=== PATIENT | male | born 1970 | race African-American/Black ===

== ENCOUNTER 2017-11-21 18:29 | Observation (INO) ==
[2017-11-21] MEDS ORDERED: hydrALAZINE 20 MG/1 ML VIAL IV STA ×2 (18:59→20:10)
[2017-11-21] MEDS ORDERED: LABETALOL 20 MG/4 ML SYRINGE IV STA ×2 (18:59→20:10)
[2017-11-21] MEDS ORDERED: hydrALAZINE 20 MG/1 ML VIAL ONE ×2 (19:47→20:27)
[2017-11-21] MEDS ORDERED: LABETALOL 20 MG/4 ML SYRINGE IV ONE ×2 (19:47→20:27)
[2017-11-21 19:54] LABS: Basophils # 0.1 10*3/uL (0.0-0.2); Basophils % 0.5 % (0.0-0.8); Eosinophils # 0.3 10*3/uL (0.0-0.87); Eosinophils % 2.3 % (0.00-10.9); Hematocrit 44.3 VOL% (42.0-52.0); Hemoglobin 15.2 GM/DL (14.0-18.0); Immature Granulocytes % 0.6 %; Immature Granulocytes Absolute 0.08 #; Lymphocytes # 2.5 10*3/uL (1.4-4.0); Mean Corpuscular HGB Conc 34.3 GM/DL (32-36); Mean Corpuscular Hemoglobin 28 PG (27-34); Mean Corpuscular Volume 81.7 FL (87-102); Mean Platelet Volume 9.5 FL (9.6-12.0); Monocytes # 0.9 10*3/uL (0.11-0.8); Monocytes % 6.3 % (1.7-12.7); Neutrophils % 72.3 % (38.7-73.9); Platelet Count 187 T/CUMM (130-400); Red Blood Count 5.42 MC/CUMM (3.8-5.5); White Blood Count 13.8 T/CUMM (4-12)
[2017-11-21 20:23] LABS: Bilirubin,Total 0.5 MG/DL (0.2-1.0); Calcium 8.3 MG/DL (8.5-10.1); Osmolality,Calculated 275.7 MOS/KG (273-304); Potassium 3.6 MMOL/L (3.5-5.1); Total Protein 6.9 G/DL (6.4-8.3)
[2017-11-21 20:24] LABS: Troponin I Only 0.059 NG/ML (0.00-0.045)
[2017-11-21] MEDS ORDERED: NITROGLYCERIN SL 0.4 MG TABLET SL PRN (23:19)
[2017-11-21] MEDS ORDERED: MORPHINE 2 MG/1 ML SYRINGE IV PRN (23:24)
[2017-11-21] MEDS ORDERED: ONDANSETRON 4 MG/2 ML VIAL IV PRN (23:24)
[2017-11-21] MEDS ORDERED: ACETAMINOPHEN 325 MG TABLET PO PRN (23:24)
[2017-11-21] MEDS ORDERED: amLODIPine 5 MG TABLET ONE (23:54)
[2017-11-21] MEDS ORDERED: ZALEPLON 5 MG CAPSULE ONE (23:57)
[2017-11-22] MEDS: ALBUTEROL/IPRATROPIUM 3 ML NEB RESP TX SCH ×4 (01:48→20:30)
[2017-11-22 03:55] LABS: Apearance,Urine CLEAR (Clear); Bacteria,Urine Occasional /HPF (Few); Bilirubin,Urine Negative (Negative); Blood, Urine Negative (Negative); Glucose,Urine (UA) Negative (Negative); Hyaline Casts,Urine 10 /LPF (0-3); Ketones,Urine Negative (Negative); Mucus,Urine Occasional /LPF (Occasional); Nitrite,Urine Negative (Negative); Protein,Urine >=500 MG/DL; RBC,Urine 3 /HPF (0-4); Squamous Epithelial Cell,Urine Occasional /HPF (0-10); Urine Color Yellow (Yellow); Urine Specific Gravity 1.009 (1.001-1.035); WBC,Urine 3 /HPF (0-6)
[2017-11-22 04:06] LABS: Barbiturates Screen,Urine Negative (Negative); Benzodiazepines Screen,Urine Negative (Negative); Cannabinoid Screen,Urine Negative (Negative); Opiate Screen,Urine Negative (Negative); Phencyclidine Screen,Urine Negative (Negative)
[2017-11-22 05:53] LABS: Hematocrit 44.1 VOL% (42.0-52.0); Hemoglobin 14.9 GM/DL (14.0-18.0); Mean Corpuscular Hemoglobin 28 PG (27-34); Mean Corpuscular Volume 84.2 FL (87-102); Red Blood Count 5.24 MC/CUMM (3.8-5.5); White Blood Count 13.8 T/CUMM (4-12)
[2017-11-22 05:54] LABS: Basophils # 0.1 10*3/uL (0.0-0.2); Basophils % 0.5 % (0.0-0.8); Eosinophils # 0.2 10*3/uL (0.0-0.87); Eosinophils % 1.2 % (0.00-10.9); Immature Granulocytes % 0.4 %; Immature Granulocytes Absolute 0.05 #; Lymphocytes # 2.3 10*3/uL (1.4-4.0); Lymphocytes % 16.5 % (21.2-54.2); Mean Corpuscular HGB Conc 33.8 GM/DL (32-36); Mean Platelet Volume 11.5 FL (9.6-12.0); Monocytes # 1.1 10*3/uL (0.11-0.8); Monocytes % 8.1 % (1.7-12.7); Neutrophils # 10.1 10*3/uL (1.4-7.4); Neutrophils % 73.3 % (38.7-73.9); Platelet Count 214 T/CUMM (130-400); Red Cell Distribution Width 15.9 % (9.3-17.3)
[2017-11-22 06:42] LABS: Calcium 8.5 MG/DL (8.5-10.1); Osmolality,Calculated 278.7 MOS/KG (273-304); Potassium 3.6 MMOL/L (3.5-5.1); Risk Ratio 3.33; Thyroid Stimulating Hormone 0.977 uIU/ml (0.358-3.74); VLDL CHOLESTEROL 27.6 MG/DL
[2017-11-22] MEDS ORDERED: ENOXAPARIN 40 MG/0.4 ML SYRINGE ONE (08:48)
[2017-11-22] MEDS ORDERED: FUROSEMIDE 20 MG/2 ML VIAL ONE (08:48)
[2017-11-22] MEDS ORDERED: PANTOPRAZOLE 40 MG TABLET PO ONE (08:48)
[2017-11-22] MEDS ORDERED: ASPIRIN CHEW 81 MG TABLET PO ONE (08:48)
[2017-11-22] MEDS ORDERED: amLODIPine 5 MG TABLET ONE (08:49)
[2017-11-22] MEDS: PANTOPRAZOLE 40 MG TABLET PO SCH (08:52)
[2017-11-22] MEDS: ENOXAPARIN 40 MG/0.4 ML SYRINGE SUBCUT SCH (08:53)
[2017-11-22] MEDS: FUROSEMIDE 20 MG/2 ML VIAL IV SCH ×2 (08:53→16:16)
[2017-11-22] MEDS: amLODIPine 10 MG TABLET PO SCH ×2 (10:02)
[2017-11-22] MEDS: ASPIRIN EC 81 MG TABLET PO SCH (10:03)
[2017-11-22] MEDS ORDERED: NIFEdipine 10 MG CAPSULE PO PRN (12:08)
[2017-11-22] MEDS ORDERED: METOPROLOL TARTRATE 25 MG TABLET PO SCH (12:30)
[2017-11-22] MEDS ORDERED: METOPROLOL TARTRATE 25 MG TABLET ONE (14:50)
[2017-11-22] MEDS ORDERED: PNEUMOCOCCAL VACCINE (23 VALENT) 0.5 ML VIAL IM ONE (16:00)
[2017-11-22] MEDS: hydrALAZINE 20 MG/1 ML VIAL IV PRN ×2 (16:14→20:23)
[2017-11-22] MEDS: NICOTINE 14 MG/24 HR PATCH TRANSDERM SCH (17:20)
[2017-11-22] MEDS: CARVEDILOL 12.5 MG TABLET PO SCH (20:22)
[2017-11-22] MEDS: ZALEPLON 5 MG CAPSULE PO SCH ×2 (20:23)
[2017-11-23] MEDS: ALBUTEROL/IPRATROPIUM 3 ML NEB RESP TX SCH ×4 (01:45→21:18)
[2017-11-23 04:58] LABS: Calcium 7.9 MG/DL (8.5-10.1); Magnesium 1.9 MG/DL (1.8-2.4); Osmolality,Calculated 284.4 MOS/KG (273-304); Potassium 3.3 MMOL/L (3.5-5.1)
[2017-11-23 05:01] LABS: Troponin I Only 0.051 NG/ML (0.00-0.045)
[2017-11-23] MEDS: ENOXAPARIN 40 MG/0.4 ML SYRINGE SUBCUT SCH (08:32)
[2017-11-23] MEDS: FUROSEMIDE 20 MG/2 ML VIAL IV SCH (08:32)
[2017-11-23] MEDS: hydrALAZINE 20 MG/1 ML VIAL IV PRN ×3 (08:32→20:04)
[2017-11-23] MEDS: PANTOPRAZOLE 40 MG TABLET PO SCH (08:33)
[2017-11-23] MEDS: CARVEDILOL 12.5 MG TABLET PO SCH (08:33)
[2017-11-23] MEDS: amLODIPine 10 MG TABLET PO SCH (08:33)
[2017-11-23] MEDS: ASPIRIN EC 81 MG TABLET PO SCH (08:33)
[2017-11-23] MEDS: NICOTINE 14 MG/24 HR PATCH TRANSDERM SCH (08:33)
[2017-11-23] MEDS ORDERED: CARVEDILOL 6.25 MG TABLET PO ONE (11:20)
[2017-11-23] MEDS: CIPROFLOXACIN 500 MG TABLET PO SCH ×2 (12:11→20:04)
[2017-11-23] MEDS: hydroCHLOROthiazide 25 MG TABLET PO SCH (12:12)
[2017-11-23] MEDS: CARVEDILOL 25 MG TABLET PO SCH (20:04)
[2017-11-23] MEDS: hydrALAZINE 25 MG TABLET PO SCH (20:04)
[2017-11-23] MEDS: ZALEPLON 5 MG CAPSULE PO SCH (23:24)
[2017-11-23] MEDS ORDERED: LABETALOL 20 MG/4 ML SYRINGE IV ONE (23:30)
[2017-11-24] MEDS: ALBUTEROL/IPRATROPIUM 3 ML NEB RESP TX SCH ×3 (00:31→14:11)
[2017-11-24 05:36] LABS: Calcium 8.2 MG/DL (8.5-10.1); Magnesium 2.1 MG/DL (1.8-2.4); Osmolality,Calculated 279.5 MOS/KG (273-304); Potassium 3.4 MMOL/L (3.5-5.1)
[2017-11-24] MEDS: PANTOPRAZOLE 40 MG TABLET PO SCH (08:56)
[2017-11-24] MEDS: CIPROFLOXACIN 500 MG TABLET PO SCH (08:56)
[2017-11-24] MEDS: hydroCHLOROthiazide 25 MG TABLET PO SCH (08:56)
[2017-11-24] MEDS: CARVEDILOL 25 MG TABLET PO SCH (08:56)
[2017-11-24] MEDS: hydrALAZINE 25 MG TABLET PO SCH ×2 (08:56→14:34)
[2017-11-24] MEDS: NICOTINE 14 MG/24 HR PATCH TRANSDERM SCH (08:56)
[2017-11-24] MEDS: ASPIRIN EC 81 MG TABLET PO SCH (08:57)
[2017-11-24] MEDS: ENOXAPARIN 40 MG/0.4 ML SYRINGE SUBCUT SCH (08:57)
[2017-11-24] MEDS ORDERED: FUROSEMIDE 40 MG TABLET PO SCH (09:00)
[2017-11-24] MEDS: hydrALAZINE 20 MG/1 ML VIAL IV PRN (10:22)
[2017-11-24 12:31] VITALS: BP 138/79
== END 2017-11-24 16:06 | disposition home or self-care (01) ==
LOC: N.ED 18:29 → N.EDINP 18:29 → SUATTDRO 23:24 → N.EDINP 11-22 15:09 → N.4E 11-22 15:36
PROVIDERS: ADMIT Internal Medicine; ATTEND Internal Medicine Nephrology

== ENCOUNTER 2018-10-28 12:10 | Inpatient (IN) ==
[2018-10-28 12:44] LABS: Basophils # 0.1 10*3/uL (0.0-0.2); Basophils % 0.7 % (0.0-0.8); Eosinophils # 0.4 10*3/uL (0.0-0.87); Eosinophils % 3.2 % (0.00-10.9); Hemoglobin 15.7 GM/DL (14.0-18.0); Immature Granulocytes % 0.6 %; Immature Granulocytes Absolute 0.08 #; Lymphocytes # 1.8 10*3/uL (1.4-4.0); Lymphocytes % 14.3 % (21.2-54.2); Mean Corpuscular HGB Conc 33.4 GM/DL (32-36); Mean Corpuscular Hemoglobin 28 PG (27-34); Mean Corpuscular Volume 84.5 FL (87-102); Mean Platelet Volume 9.5 FL (9.6-12.0); Monocytes # 0.9 10*3/uL (0.11-0.8); Monocytes % 6.8 % (1.7-12.7); Neutrophils # 9.3 10*3/uL (1.4-7.4); Neutrophils % 74.4 % (38.7-73.9); Platelet Count 159 T/CUMM (130-400); Red Blood Count 5.56 MC/CUMM (3.8-5.5); Red Cell Distribution Width 13.8 % (9.3-17.3); White Blood Count 12.6 T/CUMM (4-12)
[2018-10-28 12:53] LABS: PT Patient Result 10.7 SECS; Partial Thromboplastin Time 27.8 SECS (0-40)
[2018-10-28 13:09] LABS: Bilirubin,Total 0.6 MG/DL (0.2-1.0); Calcium 8.2 MG/DL (8.5-10.1); Osmolality,Calculated 281.4 MOS/KG (273-304)
[2018-10-28] MEDS ORDERED: ALBUTEROL/IPRATROPIUM 3 ML NEB RESP TX STA (15:18)
[2018-10-28] MEDS ORDERED: hydrALAZINE 20 MG/1 ML VIAL IV STA ×3 (15:18→18:16)
[2018-10-28] MEDS ORDERED: NITROGLYCERIN 2% OINT 1 INCH/GM PACK TOP STA (15:18)
[2018-10-28] MEDS ORDERED: FUROSEMIDE 100 MG/10 ML VIAL IV STA (15:18)
[2018-10-28] MEDS ORDERED: ONDANSETRON 4 MG/2 ML VIAL IV STA (15:18)
[2018-10-28] MEDS ORDERED: MORPHINE 4 MG/1 ML VIAL IV STA (15:18)
[2018-10-28] MEDS ORDERED: FUROSEMIDE 40 MG/4 ML VIAL ONE (15:38)
[2018-10-28] MEDS ORDERED: FUROSEMIDE 20 MG/2 ML VIAL ONE (15:39)
[2018-10-28] MEDS ORDERED: ENOXAPARIN 100 MG/ML SYRINGE SUBCUT STA (15:42)
[2018-10-28] MEDS ORDERED: ENOXAPARIN 120 MG/0.8 ML SYRINGE SUBCUT ONE (16:52)
[2018-10-28] MEDS ORDERED: ONDANSETRON 4 MG/2 ML VIAL IV PRN (18:12)
[2018-10-28] MEDS ORDERED: ZALEPLON 5 MG CAPSULE PO PRN (18:12)
[2018-10-28] MEDS ORDERED: ACETAMINOPHEN 325 MG TABLET PO PRN (18:12)
[2018-10-28] MEDS ORDERED: LORazepam 1 MG TABLET PO PRN (18:16)
[2018-10-28] MEDS ORDERED: POTASSIUM CHLORIDE 20 MEQ TABLET PO PRN (18:26)
[2018-10-28] MEDS ORDERED: niCARdipine 25 MG/10 ML VIAL IV ONE (20:56)
[2018-10-28] MEDS ORDERED: hydrALAZINE 25 MG TABLET PO SCH (21:00)
[2018-10-28] MEDS: niCARdipine INJ 25 MG in SODIUM CHLORIDE 0.9% 240 ML IV PRN (21:02)
[2018-10-28] MEDS: HEPARIN 5,000 UNIT/1 ML VIAL SUBCUT SCH (21:44)
[2018-10-28] MEDS: CARVEDILOL 25 MG TABLET PO SCH (23:13)
[2018-10-29] MEDS ORDERED: NITROGLYCERIN 2% OINT 1 INCH/GM PACK TOP SCH
[2018-10-29] MEDS: niCARdipine INJ 25 MG in SODIUM CHLORIDE 0.9% 240 ML IV PRN ×3 (00:26→07:03)
[2018-10-29] MEDS ORDERED: niCARdipine 25 MG/10 ML VIAL IV ONE ×3 (00:30→06:58)
[2018-10-29] MEDS: HEPARIN 5,000 UNIT/1 ML VIAL SUBCUT SCH ×3 (04:39→17:49)
[2018-10-29] MEDS: NITROGLYCERIN 2% OINT 1 INCH/GM PACK TOP SCH ×4 (04:51→22:06)
[2018-10-29 05:13] LABS: Apearance,Urine CLEAR (Clear); Bacteria,Urine Occasional /HPF (Few); Bilirubin,Urine Negative (Negative); Blood, Urine Negative (Negative); Glucose,Urine (UA) Negative (Negative); Ketones,Urine Negative (Negative); Mucus,Urine Occasional /LPF (Occasional); Nitrite,Urine Negative (Negative); Protein,Urine 100 MG/DL; RBC,Urine 2 /HPF (0-4); Squamous Epithelial Cell,Urine Occasional /HPF (0-10); Urine Color Yellow (Yellow); Urine Specific Gravity 1.013 (1.001-1.035); Urine Urobilinogen < 2.0 EU/DL (0.2-1.0); WBC,Urine 2 /HPF (0-6)
[2018-10-29 05:43] LABS: Barbiturates Screen,Urine Negative (Negative); Benzodiazepines Screen,Urine Negative (Negative); Cannabinoid Screen,Urine Negative (Negative); Opiate Screen,Urine Positive (Negative); Phencyclidine Screen,Urine Negative (Negative)
[2018-10-29 06:17] LABS: Basophils # 0.1 10*3/uL (0.0-0.2); Basophils % 0.5 % (0.0-0.8); Eosinophils # 0.3 10*3/uL (0.0-0.87); Hematocrit 48.8 VOL% (42.0-52.0); Hemoglobin 16.2 GM/DL (14.0-18.0); Immature Granulocytes % 0.6 %; Immature Granulocytes Absolute 0.09 #; Lymphocytes # 2.7 10*3/uL (1.4-4.0); Lymphocytes % 17.4 % (21.2-54.2); Mean Corpuscular HGB Conc 33.2 GM/DL (32-36); Mean Corpuscular Hemoglobin 28 PG (27-34); Mean Platelet Volume 10.2 FL (9.6-12.0); Monocytes # 1.2 10*3/uL (0.11-0.8); Neutrophils % 71.5 % (38.7-73.9); Platelet Count 190 T/CUMM (130-400); Red Blood Count 5.74 MC/CUMM (3.8-5.5); Red Cell Distribution Width 14.2 % (9.3-17.3); White Blood Count 15.3 T/CUMM (4-12)
[2018-10-29 06:27] LABS: Calcium 8.6 MG/DL (8.5-10.1); Osmolality,Calculated 280.7 MOS/KG (273-304); Potassium 3.7 MMOL/L (3.5-5.1); Risk Ratio 4.2; Thyroid Stimulating Hormone 1.9 uIU/ml (0.358-3.74)
[2018-10-29] MEDS: FAMOTIDINE 20 MG TABLET PO SCH (08:41)
[2018-10-29] MEDS: CARVEDILOL 25 MG TABLET PO SCH ×2 (08:41→20:36)
[2018-10-29] MEDS: NICOTINE 14 MG/24 HR PATCH TRANSDERM SCH (08:41)
[2018-10-29] MEDS: ASPIRIN EC 81 MG TABLET PO SCH (08:41)
[2018-10-29] MEDS ORDERED: PHENOL 1.4% THROAT SPRAY 177 ML BOTTLE PO PRN (18:43)
[2018-10-30] MEDS: HEPARIN 5,000 UNIT/1 ML VIAL SUBCUT SCH ×2 (03:40→09:43)
[2018-10-30] MEDS: NITROGLYCERIN 2% OINT 1 INCH/GM PACK TOP SCH ×2 (05:29→10:34)
[2018-10-30 06:08] LABS: Calcium 8.3 MG/DL (8.5-10.1); Osmolality,Calculated 280.5 MOS/KG (273-304); Potassium 3.5 MMOL/L (3.5-5.1)
[2018-10-30] MEDS: CARVEDILOL 25 MG TABLET PO SCH (08:40)
[2018-10-30] MEDS: NICOTINE 14 MG/24 HR PATCH TRANSDERM SCH (08:40)
[2018-10-30] MEDS: FAMOTIDINE 20 MG TABLET PO SCH (08:40)
[2018-10-30] MEDS: ASPIRIN EC 81 MG TABLET PO SCH (08:40)
[2018-10-30 08:54] VITALS: BP 152/99
[2018-10-30] MEDS ORDERED: ATORVASTATIN 40 MG TABLET PO SCH (21:00)
[2018-10-30] MEDS ORDERED: OMEGA 3 ACID ETHYL ESTERS 1 GM CAPSULE PO SCH (21:00)
== END 2018-10-30 11:23 | disposition home or self-care (01) | DRG 291 ==
LOC: N.2E 12:10 → N.ED 12:10 → SUATTDRO 18:12 → N.ICU 10-29 07:32 → N.5E 10-29 11:37
PROVIDERS: ADMIT Hospitalist; ATTEND Internal Medicine